=== PATIENT | female | born 1965 | race Caucasian/White ===

== ENCOUNTER → 2017-10-07 10:05 | Outpatient (CLI) | payer OTHER, SELFPAY ==
[2017-10-07 11:08] LABS: Synovial Fld Mononuclear WBC % 64.8 %; Synovial Fld Polynuclear WBC # 0.149 10^3/ul; Synovial Fld Polynuclear WBC % 35.2 %
[2017-10-07 12:57] LABS: AUTO B FLUID DILUENT BKGD CT WBC <0.1 RBC <0.01 (W<.1,R<.01); Lymph 16 %; Monocyte /Synovial Fluid 12 %; Neutrophil 20 % (0-25); Other Cell /Synovial Fluid 52 %; Source / Synovial Fluid RIGHT KNEE
[2017-10-07 12:58] LABS: Appearance /Synovial Fluid Sl Cl (CLEAR); Body Fluid QC Type(s) BF1Q; Color / Synovial Fluid Yellow (Pale Yellow)
[2017-10-07 13:57] LABS: RBC /Synovial Fluid 32 /mm3 (0)
[2017-10-08 12:42] LABS: Pathologist Comment Reviewed
== END ==
PROVIDERS: Visit Provider Specialist
DX: T84.84XA Pain due to internal orthopedic prosthetic devices, implants and grafts, initial encounter (principal)
CPT/HCPCS: 87015; 87070; 87075; 87101; 87116; 87205; 87206; 89050; 89051

== ENCOUNTER 2018-01-18 05:55 | Inpatient (IN) | payer OTHER, SELFPAY ==
--- NOTE | 2017-12-31 10:02 | EKG12_ITS ---
Test Reason : Blood Pressure : / mmHG Vent. Rate : 088 BPM Atrial Rate : 088 BPM P-R Int : 140 ms QRS Dur : 080 ms QT Int : 386 ms P-R-T Axes : 043 003 024 degrees QTc Int : 467 ms Normal sinus rhythm Normal ECG Confirmed by BRANDO PAREDES ([id number]), graphic editor PAOLO SALAZAR ([id number]) on 01/10/2018 6:48:20 PM Referred By: Lukas Rivers Confirmed By:BRANDO PAREDES
[2017-12-31 10:27] VITALS: BP 160/102; PULSE 91; RESP 18; TEMP 36.6; O2SAT 96; BMI 38.2
[2017-12-31 11:28] LABS: Anion Gap 7 (5-15); BUN 12 mg/dL (7-18); BUN/Creat Ratio 13.8 RATIO (10-20); Calcium,Total 9.4 mg/dL (8.5-10.1); Chloride 103 mmol/L (98-107); Creatinine, Serum 0.87 mg/dL (0.55-1.02); EST Glomerular Filtration Rate 73 mL/min (>60); Est Glom Filt Rate - Afr Amer 88 mL/min (>60); Estimated Creatinine Clearance 70.81 ml/min; Glucose 150 mg/dL (74-106); Potassium 4.6 mmol/L (3.5-5.1); Sodium Level 137 mmol/L (136-145)
[2017-12-31 11:36] LABS: Absolute Lymphocyte Count 1.53 X10^3/ul (0.83-4.51); Basophil# 0.03 X10^3/uL; Basophil% 0.4 % (0-1); Eosinophil# 0.06 X10^3/uL; Eosinophils% 0.8 % (0-5); Hematocrit 44.1 % (37-47); Hemoglobin 14.7 g/dl (12.0-15.0); Lymphocyte # 1.53 X10^3/ul (4.0); Lymphocyte % 21.3 % (19-41); Mean Corp Hgb Conc 33.3 g/gl (32-36); Mean Corpuscular Hgb 28.4 pg (27.0-32.0); Mean Corpuscular Volume 85.1 fL (81-99); Mean Platelet Vol. 11.1 fl (6.2-12.0); Monocyte# 0.51 X10^3/uL; Monocyte% 7.1 % (0-10); Neutrophil # 5.02 X10^3/uL (2.7-7.7); Neutrophil % 70.1 % (47-70); Platelet Count 249 K/mm3 (150-450); RBC Distribution Width CV 12.8 % (11.6-14.6); RBC Distribution Width SD 39.8 fl (35.1-43.9); Red Blood Count 5.18 M/mm3 (4.2-5.4); White Blood Count 7.2 K/mm3 (4.4-11.0)
[2017-12-31 11:40] LABS: POSITIVE COUNT NO; POSITIVE DIFFERENTIAL NO; POSITIVE MORPHOLOGY NO
[2018-01-18] VITALS (13 sets, daily range): BP systolic 113–144; BP diastolic 58–98; PULSE 92–104; RESP 14–18; TEMP 36.4–36.8; O2SAT 91–100; BMI 38.2; BMI 38.0
[2018-01-18] MEDS: oxyCODONE HCl Cr 10 MG Tablet PO (06:18)
[2018-01-18] MEDS: Celecoxib 200 MG Capsule 400 MG PO (06:18)
[2018-01-18] MEDS: Acetaminophen 500 MG Tablet 1000 MG PO ×3 (06:18→20:54)
[2018-01-18] MEDS: Scopolamine 1mg/72hr Patch 1 PATCH TD (06:55)
[2018-01-18] MEDS: Cefazolin 2 GM in 0.9% Normal Saline 100 ML IV (08:38)
--- NOTE | 2018-01-18 08:52 | RAD_ITS ---
STUDY: X-RAY - RIGHT KNEE REASON FOR EXAM: Female, 52 years old. Total knee replacement. TECHNIQUE: AP and lateral view(s) of the knee. COMPARISON: None. FINDINGS: The patient is status post total knee replacement of the constrained type. There is good alignment. Postoperative soft tissue changes. RAD/Knee 1 or 2 Views IMPRESSION: Status post total knee replacement of the constrained type. There is good alignment. Postoperative soft tissue changes. Electronically Signed: Eddie Delcid MD at 16:01 EDT Tel [phone], Service support ,
--- NOTE | 2018-01-18 11:02 | PCM.OPRPT ---
Report of Operation Date of Procedure: 01/18/18 Post-Operative Diagnosis: Failed right total knee arthroplasty arthrofibrosis Surgery/Procedure Performed:: Failed right total knee arthroplasty arthrofibrosis Description of Surgical Findings:: Right revision total knee arthroplasty entire femoral and tibial components sandstone splitter: Kalen Almodovar Type of Anesthesia:: Spinal Anesthesiologist: Nehemias Louis Special Medications: 2 g Ancef, 1 g TXA at incision, 1 g TXA closure, 10 mg Decadron, joint cocktail (5 mg Duramorph, 30 mL of 0.5% Ropivicaine, 1000 units of epinephrine, 30 mg of Toradol) Specimen's removed: 3 separate specimens were sent to microbiology Estimated Blood Loss (mL): 75 Fluids Replaced: 1300 ml crystalloid Description of Procedure: Implants used: Triathlon total knee implants were used Femur: Size 3 total stabilized right femoral component with 16 x 100 mm press-fit stem Tibia: Size 3 universal tibial baseplate with 50 x 12 mm cemented stem Polyethylene: 19 mm TS X3 polyethylene insert Brief history operative indications: 52-year-old female with multiple surgical procedures on the right knee. Patient had arthrofibrosis and flexion extension mismatch in the office. She had continued pain from her total knee replacement and dysfunction. We discussed revision right total knee replacement and ruled out infection in the office. Patient demonstrated understanding of risk and benefits which include but were not limited to blood loss, DVTs, PEs, neurovascular damage, infection, general risk of anesthesia including loss of life. Patient wished to proceed was able to sign for consent. Procedure: On the date of procedure patient's right lower extremity was marked in the preoperative area. The patient was then taken back to the operating room where the patient was placed on the table in the supine position. All bony prominences were identified a well-padded. Anesthesia assumed control of the C-spine and airway and remained controlled throughout the remainder of the procedure. A tourniquet was placed on the right upper thigh and the leg was prepped in a sterile fashion. The surgeon then scrubbed at this time .Upon reentering the room right lower extremity was draped in a standard orthopedic fashion. A timeout was then called and everyone agreed upon the side, the site, the procedure to be performed, patient's identity and antibiotics given. An Esmarch bandage was used to exsanguinate the extremity and the tourniquet was placed up to 250 mmHg with the knee in flexion. A midline skin incision was made using the previous incision and extending the incision 1 cm proximally and distally and sharp dissection was taken down through skin subcutaneous tissue and fat. The standard medial parapatellar incision was made using the previous arthrotomy marked out by the previous FiberWire sutures and the patella was subluxed laterally. The deep MCL release was done and the synovectomy was performed. Synovectomy was performed starting in the medial gutter than the suprapatellar pouch and the lateral gutter re-creating the spaces. Synovium from the suprapatellar pouch was sent for culture. Next our attention was directed to the femur. TPS saw and flexible osteotome were used to sequentially separate the bone cement interface loosening the implant. Once the implant was appropriately loosened bone tamp was used to remove the implant with minimal bone loss Our attention was then turned to the tibia where the TPS saw flexible osteotome were used to sequentially separate the bone cement interface loosening the implant. Once the implant was adequately loosened stacked osteotomes were used to separate the implant from the bone and the implant was removed. At this time the cement mantle's were debrided. The patella was examined and found to be appropriate. We elected to leave the patella which was well fixed. At this time the knee was then flexed and reamers were placed reaming the femoral and tibial canals. Tibial canal was reamed to 15 mm and the reamer was left in place to make an intramedullary cut. Intramedullary was used to make a cleanup cut giving us a nice perpendicular cut to the mechanical axis. Size 3 tibial baseplate was selected and fit appropriately. He was pinned in the appropriate rotation and the proximal tibia was prepped. After the keel was punched trial implant was placed and attention was directed towards the femur. Femur was then sequentially reamed to 16 mm for 100 mm stem. TCG trial was put into place and pinned in the appropriate rotation. We then took the knee throughout range of motion showing a well balanced knee in flexion and extension. The TCG trial was then used to make distal femoral and posterior condylar cuts. Once these cleanup cuts were made size 3 trial with 16 mm x 100 mm stem was placed. Knee was taken through range of motion and 19 mm polyethylene was found to be appropriate to ensure proper balancing and stability of the knee. Patella tracking, was then verified and corrected appropriately as needed. Patellar tracking was checked and deemed appropriate. Once we were happy the trial components were removed. It was copiously irrigated out with normal saline 6 L under low-pressure lavage. Cement restrictor was placed in the tibia. Bone ends were dried. Hemostasis was obtained. Cement was mixed. When the cement was ready the components were cemented into place starting with the tibia, and femur. The trial poly component was placed and the knee was placed in full extension. All excess cement was removed in the process. Once the cement had cured the tracking, alignment and balance were verified and a size 19mm polyethylene component was placed with its central pin. Once the final components were placed the wound was copiously irrigated with normal saline solution and the remainder of the periarticular injection was given. The wound was closed in a layer warner fashion using #1 vicryl interrupted sutures for the arthrotomy, 2-0 interrupted Vicryl for the subcuticular layer and charmaine for final skin closure. A sterile compressive dressing was then placed. The patient was then awakened from anesthesia, transferred to the rmiami and transferred to the PACU for recovery. Post op plan DVT ppx: ASA 325mg BID, thigh high compression stockings Follow up: in office in 2 weeks for wound check PT: to start POD #0 at hospital, outpatient PT should be arranged. She will be on montelukast for history of fibrosis for 3 months. Doxycycline for 1 week as we follow cultures. My physician automotive service assistant was a vital part of this case. He was important in appropriate retraction during the case, and protection of soft tissues during bony cuts. His intimate knowledge of the case and my steps aided in safe and expedient completion of the procedure as well as appropriate position of the leg during the case. He was also vital in assisting with closure under my direct supervision. Grafts/Implants Used: [place] - Complications none - Admit VTE Documentation VTE Present on Admission: No VTE Mechan Device Prophylaxis: SCD's, Thigh High ODESSA Hose VTE Pharm Prophylaxis ordered?: Yes
--- NOTE | 2018-01-18 11:12 | OP.PCM_ITS ---
Report of Operation Date of Procedure: 01/18/18 Post-Operative Diagnosis: Failed right total knee arthroplasty arthrofibrosis Surgery/Procedure Performed:: Failed right total knee arthroplasty arthrofibrosis Description of Surgical Findings:: Right revision total knee arthroplasty entire femoral and tibial components union organizer: Kalen Almodovar Type of Anesthesia:: Spinal Anesthesiologist: Nehemias Louis Special Medications: 2 g Ancef, 1 g TXA at incision, 1 g TXA closure, 10 mg Decadron, joint cocktail (5 mg Duramorph, 30 mL of 0.5% Ropivicaine, 1000 units of epinephrine, 30 mg of Toradol) Specimen's removed: 3 separate specimens were sent to microbiology Estimated Blood Loss (mL): 75 Fluids Replaced: 1300 ml crystalloid Description of Procedure: Implants used: Triathlon total knee implants were used Femur: Size 3 total stabilized right femoral component with 16 x 100 mm press- fit stem Tibia: Size 3 universal tibial baseplate with 50 x 12 mm cemented stem Polyethylene: 19 mm TS X3 polyethylene insert Brief history operative indications: 52-year-old female with multiple surgical procedures on the right knee. Patient had arthrofibrosis and flexion extension mismatch in the office. She had continued pain from her total knee replacement and dysfunction. We discussed revision right total knee replacement and ruled out infection in the office. Patient demonstrated understanding of risk and benefits which include but were not limited to blood loss, DVTs, PEs, neurovascular damage, infection, general risk of anesthesia including loss of life. Patient wished to proceed was able to sign for consent. Procedure: On the date of procedure patient's right lower extremity was marked in the preoperative area. The patient was then taken back to the operating room where the patient was placed on the table in the supine position. All bony prominences were identified a well-padded. Anesthesia assumed control of the C- spine and airway and remained controlled throughout the remainder of the procedure. A tourniquet was placed on the right upper thigh and the leg was prepped in a sterile fashion. The surgeon then scrubbed at this time .Upon reentering the room right lower extremity was draped in a standard orthopedic fashion. A timeout was then called and everyone agreed upon the side, the site, the procedure to be performed, patient's identity and antibiotics given. An Esmarch bandage was used to exsanguinate the extremity and the tourniquet was placed up to 250 mmHg with the knee in flexion. A midline skin incision was made using the previous incision and extending the incision 1 cm proximally and distally and sharp dissection was taken down through skin subcutaneous tissue and fat. The standard medial parapatellar incision was made using the previous arthrotomy marked out by the previous FiberWire sutures and the patella was subluxed laterally. The deep MCL release was done and the synovectomy was performed. Synovectomy was performed starting in the medial gutter than the suprapatellar pouch and the lateral gutter re- creating the spaces. Synovium from the suprapatellar pouch was sent for culture. Next our attention was directed to the femur. TPS saw and flexible osteotome were used to sequentially separate the bone cement interface loosening the implant. Once the implant was appropriately loosened bone tamp was used to remove the implant with minimal bone loss Our attention was then turned to the tibia where the TPS saw flexible osteotome were used to sequentially separate the bone cement interface loosening the implant. Once the implant was adequately loosened stacked osteotomes were used to separate the implant from the bone and the implant was removed. At this time the cement mantle's were debrided. The patella was examined and found to be appropriate. We elected to leave the patella which was well fixed. At this time the knee was then flexed and reamers were placed reaming the femoral and tibial canals. Tibial canal was reamed to 15 mm and the reamer was left in place to make an intramedullary cut. Intramedullary was used to make a cleanup cut giving us a nice perpendicular cut to the mechanical axis. Size 3 tibial baseplate was selected and fit appropriately. He was pinned in the appropriate rotation and the proximal tibia was prepped. After the keel was punched trial implant was placed and attention was directed towards the femur. Femur was then sequentially reamed to 16 mm for 100 mm stem. TCG trial was put into place and pinned in the appropriate rotation. We then took the knee throughout range of motion showing a well balanced knee in flexion and extension. The TCG trial was then used to make distal femoral and posterior condylar cuts. Once these cleanup cuts were made size 3 trial with 16 mm x 100 mm stem was placed. Knee was taken through range of motion and 19 mm polyethylene was found to be appropriate to ensure proper balancing and stability of the knee. Patella tracking, was then verified and corrected appropriately as needed. Patellar tracking was checked and deemed appropriate. Once we were happy the trial components were removed. It was copiously irrigated out with normal saline 6 L under low-pressure lavage. Cement restrictor was placed in the tibia. Bone ends were dried. Hemostasis was obtained. Cement was mixed. When the cement was ready the components were cemented into place starting with the tibia, and femur. The trial poly component was placed and the knee was placed in full extension. All excess cement was removed in the process. Once the cement had cured the tracking, alignment and balance were verified and a size 19mm polyethylene component was placed with its central pin. Once the final components were placed the wound was copiously irrigated with normal saline solution and the remainder of the periarticular injection was given. The wound was closed in a layer warner fashion using #1 vicryl interrupted sutures for the arthrotomy, 2-0 interrupted Vicryl for the subcuticular layer and charmaine for final skin closure. A sterile compressive dressing was then placed. The patient was then awakened from anesthesia, transferred to the [place] and transferred to the PACU for recovery. Post op plan DVT ppx: ASA 325mg BID, thigh high compression stockings Follow up: in office in 2 weeks for wound check PT: to start POD #0 at hospital, outpatient PT should be arranged. She will be on montelukast for history of fibrosis for 3 months. Doxycycline for 1 week as we follow cultures. My physician apartment community assistant manager was a vital part of this case. He was important in appropriate retraction during the case, and protection of soft tissues during bony cuts. His intimate knowledge of the case and my steps aided in safe and expedient completion of the procedure as well as appropriate position of the leg during the case. He was also vital in assisting with closure under my direct supervision. Grafts/Implants Used: [place] - Complications none - Admit VTE Documentation VTE Present on Admission: No VTE Mechan Device Prophylaxis: SCD's, Thigh High ODESSA Hose VTE Pharm Prophylaxis ordered?: Yes
[2018-01-18] MEDS: Fluticasone 0.05% 1 SPRAY NASAL.SRY 2 SPRAY NASAL (13:58)
[2018-01-18] MEDS: Famotidine 20 MG Tablet PO (13:58)
[2018-01-18] MEDS: Montelukast 10 MG Tablet PO (13:58)
[2018-01-18] MEDS: Lactated Ringers 1,000 ML 125 ML IV (15:45)
[2018-01-18] MEDS: Cefazolin 1 GM/50 ML BAG IV ×2 (15:45→23:42)
[2018-01-18] MEDS: oxyCODONE 5 MG Tablet PO ×2 (15:45→20:55)
[2018-01-18] MEDS: Folic Acid 1 MG Tablet PO (17:59)
[2018-01-18] MEDS: Ferrous Sulfate 325 MG Tablet PO (17:59)
[2018-01-18] MEDS: Doxycycline 100 MG CAPSULE PO (20:54)
[2018-01-18] MEDS: Senna/Docusate Sodium 1 Tablet 2 TABLET PO (20:54)
[2018-01-18] MEDS: Morphine 2 MG/ML Syringe IV (23:42)
[2018-01-18] MEDS: 0.9% NaCl Peripheral Flush Adult/Peds IV (23:46)
[2018-01-19] MEDS: oxyCODONE 5 MG Tablet PO ×5 (01:45→20:24)
[2018-01-19 01:52] VITALS: BP 135/76; PULSE 88; RESP 18; TEMP 36.6; O2SAT 95
[2018-01-19] MEDS: Acetaminophen 500 MG Tablet 1000 MG PO ×3 (05:36→21:03)
[2018-01-19 06:25] LABS: Hematocrit 35.6 % (37-47); Hemoglobin 11.6 g/dl (12.0-15.0); Mean Corp Hgb Conc 32.6 g/gl (32-36); Mean Corpuscular Hgb 28.2 pg (27.0-32.0); Mean Corpuscular Volume 86.6 fL (81-99); Platelet Count 216 K/mm3 (150-450); RBC Distribution Width CV 12.8 % (11.6-14.6); Red Blood Count 4.11 M/mm3 (4.2-5.4); White Blood Count 12.9 K/mm3 (4.4-11.0)
[2018-01-19 06:31] LABS: Scan Indicated on CBC? Y/N NO
[2018-01-19 06:36] LABS: Anion Gap 5 (5-15); BUN 11 mg/dL (7-18); BUN/Creat Ratio 13.4 RATIO (10-20); Calcium,Total 8.1 mg/dL (8.5-10.1); Chloride 107 mmol/L (98-107); Creatinine, Serum 0.82 mg/dL (0.55-1.02); EST Glomerular Filtration Rate 78 mL/min (>60); Est Glom Filt Rate - Afr Amer 94 mL/min (>60); Estimated Creatinine Clearance 75.13 ml/min; Glucose 144 mg/dL (74-106); Potassium 4.3 mmol/L (3.5-5.1); Sodium Level 139 mmol/L (136-145)
--- NOTE | 2018-01-19 07:04 | PCM.PN.ORT ---
Subjective: The patient was resting in bed upon examination. Patient denies any chest pain, shortness of breath, dizziness, lightheadedness, nausea or vomiting, or calf pain. Pain is controlled on medications. No adverse overnight events. Patient does report pain in her right knee since surgery but does state this is better than the pain prior to surgery. Patient does wish to go home upon discharge when medically ready. She states she will begin physical therapy at [facility] but states no appointment has been set up. Objective: Vital signs stable and afebrile. Patient is able to plantarflex and dorsiflex actively. Sensation is intact to light touch to saphenous, sural, superficial and deep peroneal, and tibial distribution. Dressing is clean dry and intact. Negative Homans bilaterally, negative signs and symptoms of DVT. - Physical Exam General: Alert, Oriented x3, Cooperative, No apparent distress Vital Signs Temp Pulse Resp BP Pulse Ox 97.9 F 88 18 135/76 H 95 01/19/18 01:52 01/19/18 01:52 01/19/18 01:52 01/19/18 01:52 01/19/18 01:52 Oxygen Delivery Method Room Air Weight: 107.3 kg Body Mass Index (BMI) 38.0 Intake and Output for Last 24 Hours 01/17/18 01/18/18 01/19/18 23:59 23:59 23:59 Intake Total 3706 / 3706 625 / 625 Output Total 250 / 250 800 / 800 Balance 3456 / 3456 -175 / -175 Laboratory Tests Past 24 Hrs 01/19/18 01/19/18 05:30 05:30 WBC 12.9 H RBC 4.11 L Hgb 11.6 L Hct 35.6 L MCV 86.6 MCH 28.2 MCHC 32.6 RDW 12.8 RDW Differential 39.0 Plt Count 216 MPV 11.0 Sodium 139 Potassium 4.3 Chloride 107 Carbon Dioxide 27.0 Anion Gap 5 BUN 11 Creatinine 0.82 Estim Creat Clear Calc 75.13 Est GFR (MDRD) Af Amer 94 Est GFR (MDRD) Non-Af 78 BUN/Creatinine Ratio 13.4 Glucose 144 H Calcium 8.1 L Medical Necessity - Tobacco Use Smoking Status: Former smoker Assessment/Plan 1. S/P revision right total knee arthroplasty POD #1 2. Continue Pain Medications: Tylenol and OxyIR 3. DVT Prophylaxis: Aspirin 325 mg twice daily 4. PT/OT: Weightbearing as tolerated 5. H & H: 11.6/35.6, asymptomatic 6. Leukocytosis: Currently 12.9, afebrile. Patient did receive Decadron intraoperatively 7. Encouraged Incentive Spirometry 8. Continue antibiotics while following cultures: Currently on doxycycline. Cultures are pending 9. History of arthrofibrosis: Patient will be placed on Montelukast for 3 months postoperatively 10. Disposition: Plan will be for possible discharge home tomorrow with outpatient physical therapy at [facility].
[2018-01-19] MEDS: Senna/Docusate Sodium 1 Tablet 2 TABLET PO ×2 (07:46→21:04)
[2018-01-19] MEDS: Folic Acid 1 MG Tablet PO ×2 (07:47→16:19)
[2018-01-19] MEDS: Fluticasone 0.05% 1 SPRAY NASAL.SRY 2 SPRAY NASAL (07:47)
[2018-01-19] MEDS: Famotidine 20 MG Tablet PO (07:47)
[2018-01-19] MEDS: Aspirin 325 MG Tablet PO ×2 (07:47→16:19)
[2018-01-19] MEDS: Ferrous Sulfate 325 MG Tablet PO ×2 (07:48→16:19)
[2018-01-19 07:50] VITALS: BP 155/79; PULSE 85; RESP 18; TEMP 36.6; O2SAT 96
[2018-01-19] MEDS: Lisinopril 40 MG Tablet PO (07:51)
[2018-01-19 07:54] VITALS: PULSE 90
[2018-01-19] MEDS: Doxycycline 100 MG CAPSULE PO ×2 (10:09→21:03)
--- NOTE | 2018-01-19 10:47 | CASEMGMT ---
Face to Face with patient for initial transition planning/care coordination assessment. KERA CASEY introduced self and role at [facility], pt voices understanding and consents to assessment at this time. Pt is lying in bed in no distress at this time. Pt A/O x4 at this time and answers all questions appropriately at this time. Care providers, pharmacy, and demographics verified. See attached link. Pt voices no further concerns/needs at this time. Advised pt to ask for CM if any further questions/concerns/needs arise, voices understanding. Pt states outpt therapy already set up thru [facility] and states no transportation concerns. PLAN: Home w/ outpt therapy [facility] KERA CASEY
[2018-01-19] MEDS: Ketorolac 15 MG/ML Vial IV ×2 (13:33→20:25)
[2018-01-19 13:46] VITALS: BP 136/89; PULSE 98; RESP 16; TEMP 37.1; O2SAT 97
[2018-01-19] MEDS: Montelukast 10 MG Tablet PO (17:20)
[2018-01-19] MEDS: 0.9% NaCl Peripheral Flush Adult/Peds IV (20:25)
[2018-01-19 20:45] VITALS: BP 158/94; PULSE 104; RESP 18; TEMP 36.6; O2SAT 97
[2018-01-20] VITALS (8 sets, daily range): BP systolic 153–173; BP diastolic 87–117; PULSE 90–104; RESP 18; TEMP 36.7–37.2; O2SAT 94–97
[2018-01-20] MEDS: oxyCODONE 5 MG Tablet PO ×4 (00:40→20:45)
[2018-01-20] MEDS: 0.9% NaCl Peripheral Flush Adult/Peds IV ×2 (03:26→04:19)
[2018-01-20] MEDS: Ketorolac 15 MG/ML Vial IV (03:26)
[2018-01-20] MEDS: Morphine 2 MG/ML Syringe IV ×2 (04:19→09:24)
[2018-01-20] MEDS: Acetaminophen 500 MG Tablet 1000 MG PO ×3 (05:02→23:03)
[2018-01-20] MEDS: Lisinopril 40 MG Tablet PO (05:03)
[2018-01-20 06:03] LABS: Hemoglobin 11.4 g/dl (12.0-15.0); Mean Corp Hgb Conc 32.6 g/gl (32-36); Mean Corpuscular Hgb 28.6 pg (27.0-32.0); Mean Corpuscular Volume 87.7 fL (81-99); Mean Platelet Vol. 10.9 fl (6.2-12.0); Platelet Count 191 K/mm3 (150-450); RBC Distribution Width CV 13.2 % (11.6-14.6); RBC Distribution Width SD 41.3 fl (35.1-43.9); Red Blood Count 3.99 M/mm3 (4.2-5.4); White Blood Count 9.2 K/mm3 (4.4-11.0)
[2018-01-20 06:06] LABS: Scan Indicated on CBC? Y/N NO
[2018-01-20] MEDS: Aspirin 325 MG Tablet PO ×2 (08:15→18:26)
[2018-01-20] MEDS: Ferrous Sulfate 325 MG Tablet PO ×2 (08:16→18:26)
[2018-01-20] MEDS: Folic Acid 1 MG Tablet PO ×2 (08:16→18:26)
[2018-01-20] MEDS: Doxycycline 100 MG CAPSULE PO ×2 (08:16→23:03)
[2018-01-20] MEDS: Fluticasone 0.05% 1 SPRAY NASAL.SRY 2 SPRAY NASAL (08:16)
[2018-01-20] MEDS: Famotidine 20 MG Tablet PO (08:17)
[2018-01-20] MEDS: Senna/Docusate Sodium 1 Tablet 2 TABLET PO (08:17)
[2018-01-20] MEDS: Ondansetron 4 MG/2 ML Vial IV (09:24)
--- NOTE | 2018-01-20 09:38 | PCM.PN.ORT ---
Subjective: The patient was sitting in bedside chair upon examination. Patient denies any chest pain, shortness of breath, dizziness, lightheadedness, nausea or vomiting, or calf pain. Pain is controlled on medications. No adverse overnight events. Patient states pain did increase yesterday. Patient has been tolerating physical therapy. She does complain of soreness in the knee and thigh region. Plan was for possible discharge home today however patient vomited after physical therapy. She is currently on Zofran. Objective: Vital signs stable and afebrile. Patient is able to plantarflex and dorsiflex actively. Sensation is intact to light touch to saphenous, sural, superficial and deep peroneal, and tibial distribution. Dressing is clean dry and intact. Negative Homans bilaterally, negative signs and symptoms of DVT. - Physical Exam General: Alert, Oriented x3, Cooperative, No apparent distress Vital Signs Temp Pulse Resp BP Pulse Ox 98.1 F 98 18 157/94 H 97 01/20/18 08:27 01/20/18 08:27 01/20/18 08:27 01/20/18 08:27 01/20/18 08:27 Oxygen Delivery Method Room Air Weight: 107.3 kg Body Mass Index (BMI) 38.0 Intake and Output for Last 24 Hours 01/18/18 01/19/18 01/20/18 23:59 23:59 23:59 Intake Total 3706 / 3706 825 / 825 400 / 400 Output Total 250 / 250 1250 / 1250 Balance 3456 / 3456 -425 / -425 400 / 400 Microbiology Past 72 Hours 01/18/18 10:15 Gram Stain - Final Tissue - Knee Wound Culture - Preliminary No growth-Final to follow Anaerobic Culture - Preliminary No growth in 48 hours. 01/18/18 10:15 Gram Stain - Final Tissue - Knee Wound Culture - Preliminary No growth-Final to follow Anaerobic Culture - Preliminary No growth in 48 hours. 01/18/18 10:15 Gram Stain - Final Tissue - Knee Wound Culture - Preliminary No growth-Final to follow Anaerobic Culture - Preliminary No growth in 48 hours. Laboratory Tests Past 24 Hrs 01/20/18 05:20 WBC 9.2 RBC 3.99 L Hgb 11.4 L Hct 35.0 L MCV 87.7 MCH 28.6 MCHC 32.6 RDW 13.2 RDW Differential 41.3 Plt Count 191 MPV 10.9 Medical Necessity - Tobacco Use Smoking Status: Former smoker Assessment/Plan 1. S/P revision right total knee arthroplasty POD #2 2. Continue Pain Medications: Tylenol and OxyIR. MS contin was added for pain control. 3. DVT Prophylaxis: Aspirin 325 mg twice daily 4. PT/OT: Weightbearing as tolerated 5. H & H: 11.6/35.6, asymptomatic 6. Leukocytosis: Resolved currently 9.2, afebrile. Patient did receive Decadron intraoperatively. 7. Encouraged Incentive Spirometry 8. Continue antibiotics while following cultures: Currently on doxycycline. Cultures are currently without growth. Will continue to monitor 9. History of arthrofibrosis: Patient will be placed on Montelukast for 3 months postoperatively 10. Disposition: Plan was for possible discharge home today. However patient did vomit today after physical therapy. MS Contin was added for pain control. Plan will be for possible discharge home tomorrow. Patient has scheduled physical therapy at [facility] on 01/26/18.
[2018-01-20] MEDS: morphine SR 15 MG Tablet PO ×2 (10:28→23:03)
[2018-01-20] MEDS: proMETHazine 25 MG/ML Syringe 12.5 MG IM (13:59)
[2018-01-20] MEDS: Montelukast 10 MG Tablet PO (18:26)
[2018-01-21] MEDS: oxyCODONE 5 MG Tablet PO ×4 (01:03→16:34)
[2018-01-21 03:35] VITALS: BP 133/76; PULSE 108; RESP 18; TEMP 37.1; O2SAT 95
[2018-01-21] MEDS: Acetaminophen 500 MG Tablet 1000 MG PO ×2 (05:03→12:49)
[2018-01-21 06:50] LABS: Hematocrit 36.2 % (37-47); Hemoglobin 11.6 g/dl (12.0-15.0); Mean Corpuscular Volume 87.2 fL (81-99); Mean Platelet Vol. 10.7 fl (6.2-12.0); Platelet Count 187 K/mm3 (150-450); RBC Distribution Width CV 13.4 % (11.6-14.6); RBC Distribution Width SD 42.9 fl (35.1-43.9); Red Blood Count 4.15 M/mm3 (4.2-5.4); White Blood Count 7.5 K/mm3 (4.4-11.0)
[2018-01-21 06:56] LABS: Scan Indicated on CBC? Y/N NO
--- NOTE | 2018-01-21 07:19 | PN.ORTHO_ITS ---
Subjective: The patient was resting in bed upon examination. Patient denies any chest pain , shortness of breath, dizziness, lightheadedness, nausea or vomiting, or calf pain. Pain is controlled on medications. No adverse overnight events. Patient states the pain is better controlled since beginning MS Naomie. Patient states she feels much better today. The nausea/vomiting has improved with medications. Patient is wishing to go home today. Patient's blood pressure has been slightly elevated with some tachycardia. However patient is not complaining of any chest pain, shortness of breath or calf pain. Patient does have underlying hypertension. Patient's preoperative admission testing did show pulse rate to be in the 90s as well as elevated lead pressure. Objective: BP = 130/95, HR = 101, 94% O2 sat; and afebrile. Patient is able to plantarflex and dorsiflex actively. Sensation is intact to light touch to saphenous, sural, superficial and deep peroneal, and tibial distribution. Dressing is clean dry and intact. Negative Homans bilaterally, negative signs and symptoms of DVT. - Physical Exam General: Alert, Oriented x3, Cooperative, No apparent distress Vital Signs Temp Pulse Resp BP Pulse Ox 98.7 F 108 H 18 133/76 H 95 01/21/18 03:35 01/21/18 03:35 01/21/18 03:35 01/21/18 03:35 01/21/18 03:35 Oxygen Delivery Method Room Air Weight: 107.3 kg Body Mass Index (BMI) 38.0 Intake and Output for Last 24 Hours 01/19/18 01/20/18 01/21/18 23:59 23:59 23:59 Intake Total 825 / 825 400 / 400 Output Total 1250 / 1250 Balance -425 / -425 400 / 400 Microbiology Past 72 Hours 01/18/18 10:15 Gram Stain - Final Tissue - Knee Wound Culture - Preliminary No growth-Final to follow Anaerobic Culture - Preliminary No growth in 48 hours. 01/18/18 10:15 Gram Stain - Final Tissue - Knee Wound Culture - Preliminary No growth-Final to follow Anaerobic Culture - Preliminary No growth in 48 hours. 01/18/18 10:15 Gram Stain - Final Tissue - Knee Wound Culture - Preliminary No growth-Final to follow Anaerobic Culture - Preliminary No growth in 48 hours. Laboratory Tests Past 24 Hrs 01/21/18 05:51 WBC 7.5 RBC 4.15 L Hgb 11.6 L Hct 36.2 L MCV 87.2 MCH 28.0 MCHC 32.0 RDW 13.4 RDW Differential 42.9 Plt Count 187 MPV 10.7 Medical Necessity - Tobacco Use Smoking Status: Former smoker Assessment/Plan 1. S/P revision right total knee arthroplasty POD #3 2. Continue Pain Medications: Tylenol and OxyIR. MS contin was added for pain control. 3. DVT Prophylaxis: Aspirin 325 mg twice daily 4. PT/OT: Weightbearing as tolerated 5. H & H: 11.6/36.2, asymptomatic 6. Leukocytosis: Resolved currently 7.5, afebrile. Patient did receive Decadron intraoperatively. 7. Encouraged Incentive Spirometry 8. Continue antibiotics while following cultures: Currently on doxycycline. Cultures are currently without growth. Will continue to monitor 9. History of arthrofibrosis: Patient will be placed on Montelukast for 3 months postoperatively 10. Disposition: Plan will be for discharge home today. Patient has scheduled physical therapy at [facility] on 01/26/18. I discussed with the patient her elevated blood pressure and pulse rate. She will follow-up postoperatively in the next 1-2 weeks with her primary care physician. She was instructed to monitor this while at home and if any complications contact her PCP or go to the emergency room if any complaints.
--- NOTE | 2018-01-21 07:29 | PCM.DC.TKR ---
Discharge Diet: No Restrictions Discharge Activity: May Not Drive May shower in (days): 1 - Turned dressing away from water Ice area for (Minutes): 20 - every hour while awake. Weight Bearing Status: Weight bearing as tolerated Elevate: Operative Extremity Additional Activity Instructions:: Wear elastic stockings for 2 weeks after your surgery. Call your doctor if your incision/area has: Continuous Slow Oozing, Sudden Increased Bleeding, Increased Pain/ Swelling, Increased Redness, Foul Smelling Discharge Call your doctor if you observe: Fever of 101 or Higher, Coldness, Increased Pain, Numbness or Tingling, Change in Color, Calf discomfort, Uncontrolled pain Remove Dressing in (days):: 2 - Okay to remove dressing on January 23, 2018 Additional Instructions: Follow [facility] postop instructions Follow-up with primary care physician for monitoring of hypertension Allergies/Adverse Reactions: Allergies Tbahomx-Pqb-Ygm Reductase Inhibitor Adverse Reaction (Verified 12/31/17 10:15) Other Medications to take at Discharge Fluticasone 0.05% [Flonase Nasal [place]] 2 spray NASAL DAILY 12/31/17 Lisinopril [Zestril] 40 mg PO DAILY 12/31/17 Acetaminophen [Tylenol] 1,000 mg PO Q8 #90 tab 01/21/18 Aspirin 325 mg PO BIDCM #30 tab 01/21/18 Doxycycline 100 mg PO BID #12 cap 01/21/18 Famotidine [Pepcid] 20 mg PO DAILY #30 tab 01/21/18 Montelukast [Singulair] 10 mg PO DAILY@1700 #90 tab 01/21/18 Oxycodone [Oxyir] 5 - 10 mg PO Q4H PRN PRN 7 Days #84 tablet 01/21/18 morphine SR tablet [Ms Contin] 15 mg PO BID 4 Days #8 tablet 01/21/18 proMETHazine tablet [Phenergan tablet] 25 mg PO Q8H PRN PRN #10 tab 01/21/18 The following prescriptions were given: Oxycodone [Oxyir] 5 - 10 mg PO Q4H PRN PRN 7 Days #84 tablet PRN Reason: Mod-Severe Pain (4-10/10) proMETHazine tablet [Phenergan tablet] 25 mg PO Q8H PRN PRN #10 tab PRN Reason: Nausea/Vomiting Acetaminophen [Tylenol] 1,000 mg PO Q8 #90 tab Famotidine [Pepcid] 20 mg PO DAILY #30 tab Montelukast [Singulair] 10 mg PO DAILY@1700 #90 tab Aspirin 325 mg PO BIDCM #30 tab Doxycycline 100 mg PO BID #12 cap morphine SR tablet [Ms Contin] 15 mg PO BID 4 Days #8 tablet Primary Care Physician: Mar Nance [Primary Care Provider] - Please follow up with your Primary Care Physician in: within 1-2 weeks Please Follow Up With: Physical Therapy @ [facility] When: 01/26/18 Please Follow Up With: Kalen Almodovar PA-C When: 01/31/15 @ 1:15 pm
[2018-01-21 07:32] VITALS: BP 130/95; PULSE 101; RESP 18; TEMP 36.6; O2SAT 100
--- NOTE | 2018-01-21 07:33 | PCM.DC.SUM ---
Discharge Date and Diagnosis Date of Admission: 01/18/18 Date of Discharge: 01/21/18 - Primary Discharge Diagnosis Status post right revision total knee arthroplasty - Secondary Discharge Diagnosis Hypertension Hospital Course and Treatment Summary of Care Provided: Patient is a 52-year-old female who underwent multiple previous surgeries on the right knee. Patient had total knee [place] [address] Bennett. Patient had arthrofibrosis and flexion extension mismatch in the office. She had continued pain from her total knee replacement dysfunction with activities of daily living. After failing conservative measures, the patient opted to proceed with a revision right total knee arthroplasty. The patient underwent the above-stated procedure on January 18, 2018. Patient did receive perioperative antibiotics. Intraoperatively was uneventful. For details please see dictated operative note. The patient was placed in thigh-high teds, bilateral SCDs, remained stable in recovery. Patient was admitted to the 3rd floor at [facility]. The patient's pain was managed with the use of IV and p.o. pain medications. Patient participated in physical therapy. Patient was discharged on postoperative day #3 to home. Patient was given medications stated below. Patient will follow up with [facility] per postop instructions for reassessment. Patient will follow up with her PCP in the next 1 - 2 weeks for continued monitoring of her blood pressure. Discharge Diet: No Restrictions Discharge Activity: May Not Drive May shower in (days): 1 - Turned dressing away from water Ice area for (Minutes): 20 - every hour while awake. Weight Bearing Status: Weight bearing as tolerated Keep extremity elevated above heart level: Operative Extremity Additional Activity Instructions:: Wear elastic stockings for 2 weeks after your surgery. Call your doctor if your incision/area has: Continuous Slow Oozing, Sudden Increased Bleeding, Increased Pain/ Swelling, Increased Redness, Foul Smelling Discharge Call your doctor if you observe: Fever of 101 or Higher, Coldness, Increased Pain, Numbness or Tingling, Change in Color, Calf discomfort, Uncontrolled pain Remove Dressing in (days):: 2 - Okay to remove dressing on January 23, 2018 Home Medications: Medications to take at Discharge Fluticasone 0.05% [Flonase Nasal [place]] 2 spray NASAL DAILY 12/31/17 Lisinopril [Zestril] 40 mg PO DAILY 12/31/17 Acetaminophen [Tylenol] 1,000 mg PO Q8 #90 tab 01/21/18 Aspirin 325 mg PO BIDCM #30 tab 01/21/18 Doxycycline 100 mg PO BID #12 cap 01/21/18 Famotidine [Pepcid] 20 mg PO DAILY #30 tab 01/21/18 Montelukast [Singulair] 10 mg PO DAILY@1700 #90 tab 01/21/18 Oxycodone [Oxyir] 5 - 10 mg PO Q4H PRN PRN 7 Days #84 tablet 01/21/18 morphine SR tablet [Ms Contin] 15 mg PO BID 4 Days #8 tablet 01/21/18 proMETHazine tablet [Phenergan tablet] 25 mg PO Q8H PRN PRN #10 tab 01/21/18 Following Prescrptions Were Given to Patient: Oxycodone [Oxyir] 5 - 10 mg PO Q4H PRN PRN 7 Days #84 tablet PRN Reason: Mod-Severe Pain (4-05/11) proMETHazine tablet [Phenergan tablet] 25 mg PO Q8H PRN PRN #10 tab PRN Reason: Nausea/Vomiting Acetaminophen [Tylenol] 1,000 mg PO Q8 #90 tab Famotidine [Pepcid] 20 mg PO DAILY #30 tab Montelukast [Singulair] 10 mg PO DAILY@1700 #90 tab Aspirin 325 mg PO BIDCM #30 tab Doxycycline 100 mg PO BID #12 cap morphine SR tablet [Ms Contin] 15 mg PO BID 4 Days #8 tablet Primary Care Physician: Mar Nance [Primary Care Provider] - Please follow up with your Primary Care Physician in: within 1-2 weeks Please Follow Up With: Physical Therapy @ [facility] When: 01/26/18 Please Follow Up With: Kalen Almodovar PA-C When: 01/31/15 @ 1:15 pm Additional Instructions: Follow [facility] postop instructions Follow-up with primary care physician for monitoring of hypertension Medical Necessity - Tobacco Use Smoking Status: Former smoker Meaningful Use Info Meaningful Use Diagnoses (Choose all that apply): None applicable
[2018-01-21] MEDS: Famotidine 20 MG Tablet PO (08:06)
[2018-01-21] MEDS: Aspirin 325 MG Tablet PO ×2 (08:06→16:35)
[2018-01-21] MEDS: Fluticasone 0.05% 1 SPRAY NASAL.SRY 2 SPRAY NASAL (09:59)
[2018-01-21] MEDS: morphine SR 15 MG Tablet PO (09:59)
[2018-01-21] MEDS: Lisinopril 40 MG Tablet PO (09:59)
[2018-01-21] MEDS: Ferrous Sulfate 325 MG Tablet PO ×2 (09:59→16:35)
[2018-01-21] MEDS: Senna/Docusate Sodium 1 Tablet 2 TABLET PO (10:00)
[2018-01-21] MEDS: Doxycycline 100 MG CAPSULE PO (10:00)
[2018-01-21] MEDS: Folic Acid 1 MG Tablet PO ×2 (10:00→16:35)
[2018-01-21 12:00] VITALS: BP 141/87; PULSE 98; RESP 18; TEMP 36.7; O2SAT 98
[2018-01-21] MEDS: Montelukast 10 MG Tablet PO (16:35)
== END 2018-01-21 18:45 | disposition home or self-care (01) | DRG 468 ==
LOC: MS3 05:56
PROVIDERS: Admitting Provider Specialist; Visit Provider Specialist
PROC: 0SPC0JZ Removal of Synthetic Substitute from Right Knee Joint, Open Approach (ICD-10-PCS; principal; 2018-01-18 07:35)
DX: T84.092A Other mechanical complication of internal right knee prosthesis, initial encounter (principal); T84.82XA Fibrosis due to internal orthopedic prosthetic devices, implants and grafts, initial encounter; I10 Essential (primary) hypertension; Z87.891 Personal history of nicotine dependence
CPT/HCPCS: 36415; 73560; 80048; 85025; 85027; 87015; 87070; 87075; 87081; 87102; 87116; 87205; 87206; 93005; 97110; 97116; 97162; 97165; 97530; 97535; 97802; C1776; J7120; A4216; J0330; J2405

== ENCOUNTER → 2023-01-15 | Outpatient (CLI) | payer OTHER, SELFPAY ==
[2023-01-15 13:45] LABS: Absolute Lymphocyte Count 2.41 X10^3/uL (0.83-4.51); Absolute Neutrophil Count 5.4 X10^3/uL (2.0-7.7); Basophil% 1.1 % (0-1); Eosinophil# 0.15 X10^3/uL; Eosinophils% 1.7 % (0-5); Erythrocyte Sedimentation Rate 3 mm/hr (0-30); Hematocrit 52.1 % (37-47); Hemoglobin 16.8 g/dL (12.0-15.0); Lymphocyte # 2.41 X10^3/ul (0.83-4.51); Lymphocyte % 27.6 % (19-41); Mean Corp Hgb Conc 32.2 g/dL (32-36); Mean Corpuscular Hgb 27.9 pg (27.0-32.0); Mean Corpuscular Volume 86.4 fL (81-99); Monocyte# 0.64 X10^3/uL; Monocyte% 7.3 % (0-10); NRBC Flagged by Analyzer 0 % (0-5); Neutrophil % 61.8 % (47-70); Platelet Count 270 K/mm3 (150-450); RBC Distribution Width CV 13.3 % (11.6-14.6); RBC Distribution Width SD 41.5 fl (35.1-43.9); Red Blood Count 6.03 M/mm3 (4.2-5.4); White Blood Count 8.7 K/mm3 (4.4-11.0)
== END | disposition home or self-care (01) ==
PROVIDERS: PCP Student in an Organized Health Care Education/Training Program; Referring Provider Physician Assistant Surgical; Visit Provider Physician Assistant Surgical
DX: M25.561 Pain in right knee (principal); Z96.651 Presence of right artificial knee joint
CPT/HCPCS: 36415; 85025; 85652; 86140

== ENCOUNTER → 2023-01-27 | Outpatient (CLI) | payer OTHER, SELFPAY ==
[2023-01-27 11:48] LABS: Synovial Fld Mononuclear WBC # 0.213 10^3/ul; Synovial Fld Mononuclear WBC % 72.7 %; Synovial Fld Polynuclear WBC % 27.3 %
[2023-01-27 11:50] LABS: RBC /Synovial Fluid 0.007 10^6/uL (0)
[2023-01-27 12:53] LABS: AUTO B FLUID DILUENT BKGD CT WBC <0.1 RBC <0.01 (W<.1,R<.01); Appearance /Synovial Fluid Sl Cl (CLEAR); Color / Synovial Fluid Pink (Pale Yellow); Lymph 94 %; Monocyte /Synovial Fluid 6 %
[2023-01-27 12:56] LABS: Body Fluid QC Type(s) BF1Q
[2023-01-28 13:15] LABS: Pathologist Comment Reviewed
== END | disposition home or self-care (01) ==
LOC: LABSPEC 11:11
PROVIDERS: PCP Student in an Organized Health Care Education/Training Program; Referring Provider Physician Assistant Surgical; Visit Provider Physician Assistant Surgical
DX: Z96.651 Presence of right artificial knee joint (principal)
CPT/HCPCS: 87015; 87070; 87075; 87101; 87116; 87205; 87206; 89050; 89051

== ENCOUNTER 2023-02-10 20:41 | Emergency (ER) | payer OTHER, SELFPAY ==
[2023-02-10 20:42] VITALS: BP 143/94; PULSE 111; TEMP 36.4; O2SAT 99; BMI 37.3
--- NOTE | 2023-02-10 21:03 | EX.ED.GENINJ ---
HPI History of Present Illness Chief Complaint: Other, Pain/Inj PFSH PFSH Medical History (Updated 02/10/23 @ 22:[address] Tavon Angelo DO) Chronic back pain Diabetes mellitus, type II HTN (hypertension) Hyperlipidemia Insomnia Home Medications fluticasone propionate 50 mcg/actuation nasal spray,suspension 2 spray DAILY allergies 12/31/17 [History Last Taken Unknown] lisinopril 40 mg tablet (Zestril) 40 mg PO DAILY bp 12/31/17 [History Last Taken 01/18/18 05:00] acetaminophen 500 mg tablet 1,000 mg (2 x 500 mg) PO Q8 #90 tabs 01/21/18 [Rx Last Taken Unknown] aspirin 325 mg tablet 325 mg PO BIDCM #30 tabs 01/21/18 [Rx Last Taken Unknown] doxycycline monohydrate 100 mg capsule 100 mg PO BID #12 caps 01/21/18 [Rx Last Taken Unknown] famotidine 20 mg tablet 20 mg PO DAILY #30 tabs 01/21/18 [Rx Last Taken Unknown] montelukast 10 mg tablet 10 mg PO DAILY@1700 #90 tabs 01/21/18 [Rx Last Taken Unknown] morphine 15 mg tablet,extended release 15 mg PO BID 4 days ##8 01/21/18 [Rx Last Taken Unknown] oxycodone 5 mg tablet 5 - 10 mg (1 - 2 x 5 mg) PO Q4H PRN PRN Mod-Severe Pain (4-10/10) 7 days ##84 01/21/18 [Rx Last Taken Unknown] promethazine 25 mg tablet 25 mg PO Q8H PRN PRN Nausea/Vomiting #10 tabs 01/21/18 [Rx Last Taken Unknown] prednisone 50 mg tablet 50 mg PO DAILY #5 tabs 02/10/23 [Rx Last Taken Unknown] Allergy/AdvReac Type Severity Reaction Status Date / Time Oheaskn-KNW-AeJ Reductase AdvReac Other Verified 02/10/23 20:46 Inhibitor [Ivcrfjj-Tqs-Nei Reductase Inhibitor] Surgical History (Updated 02/10/23 @ 22:[address] Tavon Angelo DO) H/O laminectomy Social History Smoking Status: Former smoker EXAM Physical Exam Const Vital Signs: 02/10/23 20:42 Temperature 97.5 F L Temperature Source Temporal Pulse Rate 111 H Blood Pressure 143/94 H Blood Pressure Mean 110 Pulse Ox 99 Oxygen Delivery Method Room Air [facility] Narrative Medical decision making narrative: HISTORY OF PRESENT ILLNESS: 57-year-old female here with right knee and back pain. Patient states she had her right knee replaced along with revision. No recent falls. Notes atraumatic back pain that started approximately 1 week ago. No injury or trauma noted. No fever. Patient denies any saddle anesthesia, urinary tension, bowel or bladder incontinence, lower extremity weakness, fever or IV drug use, no recent spinal manipulation or surgery, no recent urinary catheterization. REVIEW OF SYSTEMS: Pertinent positives: Knee pain, back pain Pertinent negatives: Fall, focal numbness or weakness PHYSICAL EXAM: Nursing triage notes reviewed, Vital signs reviewed Constitutional: please see mdm HENT: MMM Eyes: Pupils equal round and reactive to light, Extraocular muscles intact Neck: No stridor, no JVD, full neck ROM Lungs: Clear to auscultation, No wheezing or rales. No increased work of breathing, no conversational dyspnea, no accessory muscle use, no nasal flaring. No respiratory distress noted Heart: Regular rate and rhythm, No murmurs, No rubs and No gallops, 2+ distal pulses (radial, femoral, posterior tibial) in all extremities Abdomen: Soft, there is no tenderness, rigidity, rebound or guarding, no obvious peritoneal signs, no palpable pulsatile abdominal masses, no auscultated abdominal bruit : No CVAT Extremities: No edema Back: No midline TTP Neuro: Intact sensation L1-S1 dermatomal distributions. Intact 5/5 strength in hip flexion (T12-L3). Knee extension (L2-L4). Ankle dorsiflexion (L4-L5). Ankle plantar flexion (S1). Great toe extension (L5). 2+ patellar and Achilles DTRs. Skin: No rash or lesions noted MEDICAL DECISION MAKING: Chief Complaint: Knee pain, back pain External records reviewed: X-ray of the right knee in 2018 shows knee replacement with good alignment and postop soft tissue changes Factors affecting care: Status post right knee replacement Social determinants of health: none History obtained from others: The patient's family member Prescription monitoring program reviewed. Consults: none ALL IMAGES (IF OBTAINED) HAVE BEEN PERSONALLY REVIEWED AND INTERPRETED BY MYSELF. [facility] Narrative: Patient was hemodynamically stable, afebrile, tachycardic. Right lower extremity was neurovascularly intact I considered the following differential diagnosis: Fracture dislocation, hardware failure, septic arthritis, DVT, arterial occlusion, gouty arthritis, necrotizing fasciitis Patient had outpatient imaging by her orthopedic surgeon. She had intact range of motion with no ligamentous laxity. The joint was not warm was not swollen there is good range of motion of her low suspicion for septic arthritis. Patient does not endorse any DVT risk factors. There are good distal pulses in dorsalis pedis and posterior tibial, dorsalis pedis pulse are palpable low suspicion for arterial occlusion. No evidence of overlying infection, crepitus bullae or signs of necrotizing fasciitis. No fracture dislocation was reported per patient based on recent x-ray. She was IM morphine, anti-inflammatories, lidocaine patches, and prednisone. Patient will be discharged with prednisone and close pain management orthopedics follow-up. The patient and/or family, caregivers express understanding. The patient and/or family, caregivers agrees with the plan. Total critical care time today provided was at least 0 minutes. This excludes separately billable procedures. Critical care time (if documented) is secondary to the patient having high probability of clinically significant/life threatening deterioration in the patient's condition which required my urgent intervention. Shared decision making: I will have a discussion with the patient and or visitors regarding risk/benefits of further testing or admission. They will be made aware of of the risk/benefits inherent in this decision they will be given the opportunity to voice understanding. Discharge Plan Triage Chief Complaint: Other, Pain/Inj ED Provider: Tavon Angelo Dx/Rx/DC Orders Clinical Impression: History of arthroplasty of right knee, Knee pain, chronic Instructions: ED Back Pain (Acute or Chronic), ED Chronic Pain, ED RICE Prescriptions: New prednisone 50 mg tablet 50 mg PO DAILY Qty: 5 0RF No Action lisinopril [Zestril] 40 MG tablet 40 mg PO DAILY fluticasone propionate 1 SPRAY spray,suspension 2 spray NASAL DAILY aspirin 325 MG tablet 325 mg PO BIDCM Qty: 30 0RF acetaminophen 500 MG tablet 1,000 mg PO Q8 Qty: 90 0RF famotidine 20 MG tablet 20 mg PO DAILY Qty: 30 0RF doxycycline monohydrate 100 MG capsule 100 mg PO BID Qty: 12 0RF montelukast 10 MG tablet 10 mg PO DAILY@1700 Qty: 90 0RF morphine 15 MG tablet 15 mg PO BID 4 Days Qty: 8 0RF oxycodone 5 MG tablet 5 - 10 mg PO Q4H PRN PRN (Reason: Mod-Severe Pain (4-05/11)) 7 Days Qty: 84 0RF promethazine 25 MG tablet 25 mg PO Q8H PRN PRN (Reason: Nausea/Vomiting) Qty: 10 0RF Primary Care Provider: Chiara Nance Referrals: Chiara Nance, [Primary Care Provider] - Activity Restrictions/Additional Instructions: Thank you for trusting us with your care today! Please take Tylenol (2 pills, 650 mg), ibuprofen (2 pills, 400 mg) every 6 hours as needed for pain and fever control. Please continue to take oral narcotic pain medicine. Please go to your local pharmacy or drugstore and obtain Salonpas lidocaine patches apply them topically for topical pain relief. Please begin taking prednisone daily for the next 5 days for anti-inflammatory effect. Please return to the emergency department if your symptoms change or worsen. Please follow with your orthopedic surgeon (Dr. Rivers) for further outpatient evaluation and management. Disposition Disposition: Home, Self Care
[2023-02-10] MEDS: Ibuprofen 200 MG Tablet 400 MG PO (21:52)
[2023-02-10] MEDS: predniSONE 20 MG Tablet 40 MG PO (21:52)
[2023-02-10] MEDS: Morphine 4 MG/ML Syringe IM (21:53)
[2023-02-10] MEDS: Lidocaine 5% Patch 1 PATCH TOPICAL (21:53)
== END 2023-02-10 22:31 | disposition home or self-care (01) ==
PROVIDERS: Emergency Provider Emergency Medicine; PCP Student in an Organized Health Care Education/Training Program; Visit Provider Emergency Medicine
DX: M25.561 Pain in right knee (principal); M54.9 Dorsalgia, unspecified; G89.29 Other chronic pain; Z87.891 Personal history of nicotine dependence; Z96.651 Presence of right artificial knee joint
CPT/HCPCS: 96372; 99284